=== PATIENT | female | born 1980 | race Caucasian/White ===

== ENCOUNTER 2022-05-24 20:29 | Emergency (ER) | payer SELFPAY ==
[2022-05-24 20:33] VITALS: BP 135/86; PULSE 113; RESP 16; TEMP 37.8; O2SAT 94
--- NOTE | 2022-05-24 22:56 | XRR_ITS ---
PROCEDURE INFORMATION: Exam: XR Chest Exam date and time: 05/24/2022 11:16 PM Age: 41 years old Clinical indication: Chest wall pain; Additional info: Fever; Shield abd TECHNIQUE: Imaging protocol: Radiologic exam of the chest. Views: 1 view. COMPARISON: No relevant prior studies available. FINDINGS: Lungs: Unremarkable. No consolidation. Pleural spaces: Unremarkable. No pleural effusion. No pneumothorax. Heart/Mediastinum: Unremarkable. No cardiomegaly. Bones/joints: Unremarkable. XR/XR chest 1V portable [id number] IMPRESSION: No acute findings.
[2022-05-24] MEDS: ondansetron 2 mg/ML SDV 2 mL 4 MG IVP (23:40)
[2022-05-24] MEDS: sodium chloride 0.9% 1,000 ML 999 ML IV (23:40)
[2022-05-24 23:52] LABS: Basophils % 0.5 %; Hematocrit 40.1 % (37.0-47.0); Hemoglobin 13.3 g/dL (11.5-15.3); Lymphocytes # 3.5 10^3/uL (0.8-4.8); Mean Corpuscular HGB Conc 33.2 g/dL (30.0-36.0); Mean Corpuscular Hemoglobin 29.8 pg (28.0-34.0); Mean Corpuscular Volume 89.7 fl (81-99); Mean Platelet Volume 12.2 fL (7.4-10.4); Monocytes # 0.4 10^3/uL (0.2-0.9); Neutrophils % 51.9 %; Nucleated Red Blood Cells % 0 %; Platelet Count 116 10^3/cmm (130-400); Positive M 1; Red Blood Count 4.47 10^6/uL (4.1-5.3); Red Cell Distribution Width 12.8 % (12.1-15.1); White Blood Count 8.3 10^3/uL (4.0-10.0)
[2022-05-25 00:04] LABS: Alanine Aminotransferase 279 U/L (0-33); Albumin Level 3.4 g/dL (3.5-5.2); Alkaline Phosphatase 120 U/L (35-105); Anion Gap 16.3 (5-19); Aspartate Amino Transferase 98 U/L (0-32); Blood Urea Nitrogen 10 mg/dL (6-20); Calcium 8.5 mg/dL (8.5-10.5); Carbon Dioxide 25 mmol/L (22-29); Chloride 88 mmol/L (98-107); Globulin 3.7 g/dL (1.3-4.6); Glomerular Filtration Rate 79.4 mL/min (90-130); Glucose 132 mg/dL (65-115); Osmolality Calculated 263 mOsm/kg (285-295); Potassium 3.3 mmol/L (3.5-5.1); Sodium 126 mmol/L (136-145); Total Bilirubin 0.4 mg/dL (0.15-1.2); Total Protein 7.1 g/dL (6.6-8.7)
[2022-05-25 00:48] LABS: Slide Review Slide Review Perform
[2022-05-25 00:49] LABS: Rapid Strep A Test Negative (Negative)
[2022-05-25 00:57] LABS: Influenza A by IFA Negative (Negative); Influenza B by IFA Negative (Negative); SARS Covid-2 Antigen Negative (Negative)
--- NOTE | 2022-05-25 01:50 | ED_ITS ---
HPI - Fever General: Chief Complaint: Fever Stated Complaint: Fever, migraine, N/V Time Seen by Provider: 05/24/22 22:54 Source: patient Mode of arrival: ambulatory Limitations: no limitations History of Present Illness: See nursing assessment. Patient with complaints of headache through the frontal sinuses bilaterally, fever, chills, sweats since Tuesday evening. Patient states she was diagnosed with a urinary tract infection last Tuesday and was prescribed Bactrim. She states that she was improving for couple days and then got worse on Tuesday and she stopped the Bactrim antibiotic at that time. She states she started leftover Augmentin on Tuesday after she felt like she had a sinus infection. She states it has not improved since starting the Augmentin. She states she has had some nausea and vomiting today. Possible history includes hypothyroidism that she takes levothyroxine for. She is allergic to codeine. She denies any previous abdominal surgery. She has had a tonsillectomy. She denies tobacco use but does drink 2 beers per day. She denies any photophobia. She denies any nuchal rigidity. She denies any petechial rash. She states her face is little bit red due to her fever. She denies any previous history of fatty liver. She denies any previous history of gallstones. She denies any abdominal pain at this time. Associated symptoms: Reports chills, headache(s), nasal congestion, nausea, sinus pain and vomiting; Deny abdominal pain, flank pain, chest pain or extremity pain Review of Systems Const: Reports: fever(s) and chills; Denies: fatigue or malaise Eyes: Denies: change in vision, blurry vision, photophobia or eye redness ENMT: Reports: nasal congestion, sinus pain and other (Pain over the frontal and maxillary sinuses.); Denies: throat pain, odynophagia, mouth pain or ear or mastoid pain Card: Denies: chest pain, palpitations, edema, dyspnea on exertion or orthopnea Resp: Denies: dyspnea, productive cough, non-productive cough or wheezing GI: Reports: nausea and vomiting; Denies: abdominal pain, hematemesis or hematochezia : Reports: urinary frequency; Denies: flank pain or difficulty voiding Musc: Denies: neck pain, back pain, extremity pain or extremity swelling Skin/Breast: Reports: other (Mild redness to the face patient claims is due to her fever.); Denies: pruritus Neuro: Reports: headache(s); Denies: numbness in extremities, weakness in extremities, sensory changes, lack of coordination, dizziness or Slurred speech present Psych: Denies: anxiety or depression Pino/Lymph: Denies: enlarged lymph nodes PFSH ED Supplemental PFSH Information: Patient with history of tonsillectomy. See documentation above. Physical Exam Const: COMMON NORMALS: patient oriented x3, alert and well nourished GENERAL APPEARANCE: cooperative OTHER: Obese. Mild general malaise but no other apparent distress. No photophobia. No nuchal rigidity. No petechial rash. HENMT: COMMON NORMALS: normocephalic and atraumatic HEAD & SCALP: normocephalic and atraumatic OTHER: Throat mouth clear. Patient does have reproducible pain over bilateral frontal sinuses and mild pain over the ethmoid sinuses bilaterally. No rhinorrhea. Eye: COMMON NORMALS: EOMs intact bilaterally OTHER: Pupils equal round reactive light and extraocular movements are intact. No photophobia. Neck/C-Spine: COMMON NORMALS: full ROM, no lymphadenopathy, supple and no JVD Lymph: LYMPHATIC: no lymphadenopathy noted Chest: COMMONS NORMALS: normal inspection of the chest and normal palpation of entire chest wall Resp: COMMON NORMALS: normal respiratory effort, No retractions, No use of accessory muscles and clear to auscultation bilaterally AUSCULTATION: clear to auscultation bilaterally Cardio: COMMON NORMALS: no JVD, regular rhythm and Peripheral pulses 2+ throughout RHYTHM: regular rhythm PERIPHERAL PULSES: Peripheral pulses 2+ throughout OTHER: Mild tachycardia. GI: COMMON NORMALS: Normal to inspection, nondistended, normoactive bowel sounds present, Soft to palpation and non-tender PALPATION: Yes Soft to palpation : COMMON NORMALS: Yes no CVA tenderness BLADDER/KIDNEY EXAM: Yes no CVA tenderness Back/Pelvis: COMMON NORMALS: no CVA tenderness Extremity: COMMON NORMALS: normal to inspection and full ROM Neuro: COMMON NORMALS: patient oriented x3, CN's II-XII intact bilaterally, mo ves all extremities, no focal motor deficits and no sensory deficits noted SENSORIUM/ORIENTATION: Yes alert Psych: COMMON NORMALS: mental status grossly normal, Normal thought process present, cooperative, normal affect and speech normal SPEECH: Yes normal speech THOUGHT PROCESS: Normal thought process present Skin: COMMON NORMALS: no rashes or lesions noted GENERAL SKIN EXAM: no r ashes or lesions noted OTHER: Face is a little red. This may be due to the fever that she describes. However, it possibly could be due to allergic reaction to Bactrim. Course Vital Signs: Vital signs: Vital Signs Temperature 100.0 F H 05/24/22 20:33 Pulse Rate 98 05/25/22 02:04 Respiratory Rate 16 05/25/22 02:04 Blood Pressure 140/82 05/25/22 02:04 Pulse Oximetry 96 05/25/22 02:04 Oxygen Delivery Me thod 05/25/22 02:04 MDM - Fever Medical Decision Making Fever likely due to sinusitis versus urinary tract infection. Transaminitis likely due to frequent alcohol use and/or fatty liver. I did discuss her mildly elevated liver enzymes with the patient. She will follow-up with her family doctor for recheck. Lab Data : 05/24/22 23:29 05/24/22 23:29 Radiology Impressions Chest X-Ray 05/24/22 22:56 IMPRESSION: No acute findings. Laboratory Results WBC 8.3 10^3/uL (4.0-10.0) 05/24/22 23: RBC 4.47 10^6/uL (4.1-5.3) 05/24/22 23:29 Hgb 13.3 g/dL (11.5-15.3) 05/24/22 23: Hct 40.1 % (37.0-47.0) 05/24/22 23: MCV 89.7 fl (81-99) 05/24/22 23: MCH 29.8 pg (28.0-34.0) 05/24/22 23: MCHC 33.2 g/dL (30.0-36.0) 05/24/22 23: RDW 12.8 % (12.1-15.1) 05/24/22 23: Plt Count 116 10^3/cmm (130-400) L 05/24/22 23: MPV 12.2 fL (7.4-10.4) H 05/24/22 23: Neut % (Auto) 51.9 % 05/24/22 23: Lymph % (Auto) 42.0 % 05/24/22 23: [place] % (Auto) 5.0 % 05/24/22 23: Eos % (Auto) 0.0 % 05/24/22 23: Baso % (Auto) 0.5 % 05/24/22: Neut # (Auto) 4.30 10^3/uL (1.8-7.7) 05/24/22: Lymph # (Auto) 3.5 10^3/uL (0.8-4.8) 05/24/22: [place] # (Auto) 0.4 10^3/uL (0.2-0.9) 05/24/22: Eos # (Auto) 0.0 10^3/uL (0.0-0.8) 05/24/22: Baso # (Auto) 0.0 10^3/uL (0.0-0.1) 05/24/22: Nucleated RBC % (auto) 0 % 05/24/22: Nucleated RBCs # 0.0 /100WBC 05/24/22 23: Sodium 126 mmol/L (136-145) L 05/24/22 23: Potassium 3.3 mmol/L (3.5-5.1) L 05/24/22 23: Chloride 88 mmol/L (98-107) L 05/24/22 23: Carbon Dioxide 25 mmol/L (22-29) 05/24/22: Anion Gap 16.3 (5-19) 05/24/22 23: BUN 10 mg/dL (6-20) 05/24/22 23: Creatinine 0.8 mg/dL (0.5-0.9) 05/24/22: GFR Calculation 79.4 mL/min (90-130) L 05/24/22: Glucose 132 mg/dL (65-115) H 05/24/22 23: Calculated Osmolality 263 mOsm/kg (285-295) L 05/24/22 23: Lactate 2.0 mmol/L (0.5-2.2) 05/24/22 23: Calcium 8.5 mg/dL (8.5-10.5) 05/24/22 23:29 Total Bilirubin 0.4 mg/dL (0.15-1.2) 05/24/22 23:29 AST 98 U/L (0-32) H 05/24/22 23:29 ALT 279 U/L (0-33) H 05/24/22 23:29 Alkaline Phosphatase 120 U/L (35-105) H 05/24/22 23:29 Total Protein 7.1 g/dL (6.6-8.7) 05/24/22 23:29 Albumin 3.4 g/dL (3.5-5.2) L 05/24/22 23:29 Globulin 3.7 g/dL (1.3-4.6) 05/24/22 23:29 Urine Color Yellow (Yellow) 05/25/22 01:53 Urine Appearance Clear (CLEAR) 05/25/22 01:53 Urine pH 6 (5-7) 05/25/22 01:53 Ur Specific [place] 1.010 (1.005-1.030) 05/25/22 01:53 Urine Protein Trace (Negative) 05/25/22 01:53 Urine Glucose (UA) Norm (Normal) 05/25/22 01:53 Urine Ketones Negative (Negative) 05/25/22 01:53 Urine Blood 3+ (Negative) H 05/25/22 01:53 Urine Nitrate Negative (Negative) 05/25/22 01:53 Urine Bilirubin Neg (Negative) 05/25/22 01:53 Urine Urobilinogen Norm mg/dL (Negative) 05/25/22 01:53 Ur Leukocyte Esterase Negative (Negative) 05/25/22 01:53 Urine RBC 25-40 /hpf (0-2) H 05/25/22 01:53 Urine WBC 0-4 /hpf (0-5) H 05/25/22 01:53 Ur Squamous Epith Cells 15-25 /hpf (0-5) H 05/25/22 01:53 Amorphous Sediment Not Reportable 05/25/22 01:53 Urine Bacteria 1+ /hpf (NONE) H 05/25/22 01:53 Influenza Type A Ag Negative (Negative) 05/25/22 00:35 Influenza Type B Ag Negative (Negative) 05/25/22 00:35 SARS-CoV-2 Ag (Rapid) Negative (Negative) 05/25/22 00:35 Group A Strep Rapid Negative (Negative) 05/25/22 00:35 Discharge Plan Discharge Patient Disposition: Home Clinical Impression: Fever and chills Acute frontal sinusitis Qualifiers: Recurrence: non-recurrent Qualified Code(s): J01.10 - Acute frontal sinusitis, unspecified Urinary tract infection Qualifiers: Urinary tract infection type: acute cystitis Hematuria presence: with hematuria Qualified Code(s): N30.01 - Acute cystitis with hematuria Condition: Stable Prescriptions: New Zithromax Z-Ken 250 mg tablet See Rx Instructions .ROUTE .COMPLEX Qty: 6 0RF Rx Instructions: take 500 mg today (day 1), then 250 mg for 4 days (days 2-5) hydrocodone-acetaminophen 5-325 mg tablet 1 tab PO Q6H PRN (Reason: pain) Qty: 8 0RF cephalexin 500 mg capsule 500 mg PO QID 5 Days Qty: 20 0RF Rx Instructions: for infection ondansetron 4 mg tablet,disintegrating 4 mg PO Q6H PRN (Reason: nausea and vomiting) Qty: 10 1RF Discharge Orders: Discharge ED (Routine); Ordered 05/25/22 Ordered By: Martín Tay Discharge Diet: Advance as tolerated Discharge Activity: Increase activity as tolerated Patient Instructions: Fever - Adult, Urinary Tract Infection in Women (ED), Acute Headache (ED), Opioid Safety, Pain Management, Sinusitis - Acute Activity Restrictions/Additional Instructions: Start cephalexin and azithromycin antibiotics in approximately 16 hours. Drink plenty of water. Follow-up with your family doctor later this week for recheck. Avoid using Bactrim again. You may have an allergy to Bactrim. Your liver enzymes were slightly elevated. May take ibuprofen up to 800 mg every 6-8 hours with food as needed for fever. May take Tylenol 500 mg every 4-6 hours as needed for fever. Coding Level of Care Code ED [employer] for [employer] [facility] Exam Comprehensive
[2022-05-25 02:04] VITALS: BP 140/82; PULSE 98; RESP 16; O2SAT 96
[2022-05-25] MEDS: ketorolac 30 mg/mL INJ IVP (02:05)
[2022-05-25] MEDS: cefTRIAXone 1,000 MG in sodium chloride 0.9% (plus) 50 ML 100 MG IV (02:05)
[2022-05-25 02:22] LABS: Glucose Urine UA Norm (Normal); Ketones Urine Negative (Negative); Protein Urine Trace (Negative); Urine Appearance Clear (CLEAR); Urine Color Yellow (Yellow); pH Urine 6 (5-7)
[2022-05-25 02:23] LABS: Add Urine Culture? No; Bacteria Urine 1+ /hpf; Bilirubin Urine Neg (Negative); Blood Urine 3+ (Negative); Leukocyte Esterase Urine Negative (Negative); Nitrate Urine Negative (Negative); RBC Urine 25-40 /hpf (0-2); Squamous Epithelial Cell Urine 15-25 /hpf (0-5); Urobilinogen Urine Norm (Negative); WBC Urine 0-4 /hpf (0-5)
[2022-05-25] MEDS: potassium chloride ER 20 mEq Tablet PO (02:26)
[2022-05-25] MEDS: sodium chloride 0.9% 1,000 ML 999 ML IV (02:26)
[2022-05-25 03:58] VITALS: BP 138/86; PULSE 88; RESP 18; O2SAT 98
== END 2022-05-25 03:59 | disposition home or self-care (01) ==
PROVIDERS: Emergency Provider Family Medicine
DX: R50.9 Fever, unspecified (principal); J01.10 Acute frontal sinusitis, unspecified; N30.01 Acute cystitis with hematuria; Z20.822 Contact with and (suspected) exposure to COVID-19
CPT/HCPCS: 71045; 80053; 81001; 83605; 85025; 87040; 87081; 87426; 87804; 87880; 96361; 96365; 96375; 99284; J0696; J1885; J2405; J7030

== ENCOUNTER → 2023-02-10 16:48 | Outpatient (BNVA) | payer SELFPAY | PROVIDERS: Visit Provider Family Medicine | DX: E03.9 Hypothyroidism, unspecified (principal); F98.8 Other specified behavioral and emotional disorders with onset usually occurring in childhood and adolescence | CPT/HCPCS: 80053; 84443; 85025 ==

== ENCOUNTER → 2023-06-09 11:48 | Outpatient (BNVA) | payer SELFPAY | PROVIDERS: Visit Provider Family Medicine | DX: E03.9 Hypothyroidism, unspecified (principal); F98.8 Other specified behavioral and emotional disorders with onset usually occurring in childhood and adolescence | CPT/HCPCS: 84443 ==

== ENCOUNTER → 2023-11-14 17:04 | Outpatient (BNVA) | payer SELFPAY | PROVIDERS: Visit Provider Family Medicine | DX: E03.9 Hypothyroidism, unspecified (principal) | CPT/HCPCS: 84443 ==

== ENCOUNTER → 2024-04-02 10:18 | Outpatient (BNVA) | payer BC, SELFPAY | PROVIDERS: Visit Provider Family Medicine | DX: E03.9 Hypothyroidism, unspecified (principal); F98.8 Other specified behavioral and emotional disorders with onset usually occurring in childhood and adolescence | CPT/HCPCS: 80053; 84443; 85025 ==